=== PATIENT | female | born 1950 | race Caucasian/White ===

== ENCOUNTER 2021-05-16 20:28 | Emergency (ER) | payer MEDICARE, MEDICAID ==
[~2021-05-16] VITALS: Ht 167.6 cm; Wt 93.2 kg
[~2021-05-16 20:28] MED LIST: BAC10T PO; CALC260T6 PO; CLA10T PO; IBUP-1984 PO; SIMV5TAB58 PO; TOP25T PO
[2021-05-16] MEDS ORDERED: LIDOcaine Viscous 15ml cup MM ONE (20:45)
[2021-05-16] MEDS ORDERED: normal saline 1000ML IV soln IVB ONE (20:45)
[2021-05-16] MEDS ORDERED: ketorolac trometh. 30mg/ml inj. IV ONE (20:45)
[2021-05-16] MEDS ORDERED: mag hydrox/Alum hydrox/simeth 30ml oral suspension PO ONE (20:45)
[2021-05-16] MEDS ORDERED: ondansetron/PF 4mg/2ml inj IV ONE (20:45)
[2021-05-16 21:06] LABS: BASOPHILS % (AUTO) 0.3 % (0-1); EOSINOPHILS # (AUTO) 0.1 X10'3 (0-0.9); EOSINOPHILS % (AUTO) 1.1 % (0-6); HEMATOCRIT 40.4 % (35.0-45.0); HEMOGLOBIN 13.1 g/dl (12.0-16.0); LYMPHOCYTES # (AUTO) 2.3 X10'3 (1.1-4.8); LYMPHOCYTES % (AUTO) 20.2 % (21-51); MEAN CORPUSCULAR HEMOGLOBIN 27.4 PG (27.0-31.0); MEAN CORPUSCULAR HGB CONC 32.4 g/dL (33.0-36.5); MEAN CORPUSCULAR VOLUME 84.5 FL (78-98); MEAN PLATELET VOLUME 8.9 FL (7.4-10.4); MONOCYTES # (AUTO) 0.8 X10'3 (0-0.9); MONOCYTES % (AUTO) 6.9 % (2-12); NEUTROPHILS # (AUTO) 8.2 X10'3 (1.8-7.7); NEUTROPHILS % (AUTO) 71.5 % (42-75); PLATELET COUNT 217 X10'3 (140-440); RED BLOOD COUNT 4.78 X10'6 (4.20-5.60); RED CELL DISTRIBUTION WIDTH 15.2 % (11.5-14.5); WHITE BLOOD COUNT 11.4 X10'3 (4.5-11.0)
[2021-05-16 21:14] LABS: ALANINE AMINOTRANSFERASE 26 U/L (12-78); ALBUMIN 3.8 G/DL (3.4-5.0); ALBUMIN/GLOBULIN RATIO 1.4 (1.1-1.5); ALKALINE PHOSPHATASE 122 IU/L (46-116); ANION GAP 11 (8-16); ASPARTATE AMINO TRANSFERASE 15 U/L (10-37); BILIRUBIN,TOTAL 0.4 MG/DL (0.1-1.0); BLOOD UREA NITROGEN 16 MG/DL (7-18); BUN/CREATININE RATIO 18.2 (6.6-38.0); CALCIUM 8.7 MG/DL (8.5-10.1); CHLORIDE 113 MMOL/L (99-107); CREATININE 0.88 MG/DL (0.40-0.90); GLUCOSE 140 MG/DL (70-104); LIPASE 151 U/L (73-393); POTASSIUM 3.9 MMOL/L (3.5-5.1); SODIUM 147 MMOL/L (135-145); TOTAL CARBON DIOXIDE 22.8 MMOL/L (24-32); TOTAL PROTEIN 6.6 G/DL (6.4-8.2); eGFR 63 ML/MIN
[2021-05-16 21:50] LABS: CLARITY,URINE CLEAR (Clear); COLOR,URINE YELLOW (Yellow); GLUCOSE, URINE NEGATIVE (Neg); KETONES,URINE NEGATIVE (Neg); LEUKOCYTE ESTERASE ,URINE SMALL (Neg); NITRITES, URINE NEGATIVE (Neg); OCCULT BLOOD,URINE TRACE-LYSED (Neg); PH,URINE 6.5 (4.8-8.0); PROTEIN,URINE NEGATIVE (Neg); UROBILINOGEN,URINE 0.2 E.U/dL (0.2-1.0)
[2021-05-16 21:54] LABS: UA COLLECTION TYPE VOIDED
[2021-05-16] MEDS ORDERED: ONDA4TAB12 PO (21:57)
[2021-05-16] MEDS ORDERED: CEPH-585 PO (22:01)
[2021-05-16 22:04] LABS: RBC,URINE 0-2 /HPF (0-2)
[2021-05-16 22:05] LABS: BACTERIA,URINE NONE SEEN /HPF (Neg); MUCUS STRANDS NONE SEEN /LPF (Neg); SQUAMOUS EPITHELIAL CELL,UR FEW /LPF (FEW)
[2021-05-16] MEDS ORDERED: iohexol 300mg/ml 100ml inj. ONE (22:33)
[2021-05-17] MEDS ORDERED: acetaminophen 325mg tablet PO STA (01:34)
--- NOTE | 2021-05-17 01:35 | NUR ---
she had an IV in her inner right FA that she said is bad. So RN removed said IV and cannula intact. Her IV fluids of 300 mls were re hooked up and now infusing. Pt and spouse updated about US being paged and HS made aware to contact US.
[2021-05-17 05:46] VITALS: BP 152/55
== END 2021-05-17 05:47 | disposition home or self-care (01) ==
LOC: ER 20:30
DX: R10.13 Epigastric pain (principal); R10.11 Right upper quadrant pain; N39.0 Urinary tract infection, site not specified; R11.0 Nausea; Z86.69 Personal history of other diseases of the nervous system and sense organs; Z98.890 Other specified postprocedural states; Z88.5 Allergy status to narcotic agent; Z88.8 Allergy status to other drugs, medicaments and biological substances; Z79.2 Long term (current) use of antibiotics; Z79.899 Other long term (current) drug therapy
CPT/HCPCS: 36415; 74177; 76705; 80053; 81001; 83690; 84145; 85025; 87088; 96361; 96374; 96375; 99285; J1885; J2405; J7030; Q9967

== ENCOUNTER 2022-01-23 19:47 | Emergency (ER) | payer MEDICARE, MEDICAID ==
[~2022-01-23] VITALS: Ht 162.6 cm; Wt 90.9 kg
[~2022-01-23 19:47] MED LIST changes: +CEPH-585 PO; +ONDA4TAB12 PO
[2022-01-23 20:03] VITALS: BP 149/73
[2022-01-23] MEDS ORDERED: ondansetron/PF 4mg/2ml inj IV ONE (20:45)
[2022-01-23] MEDS ORDERED: normal saline 1000ML IV soln IVB ONE (20:45)
[2022-01-23 21:09] LABS: BASOPHILS % (AUTO) 0.1 % (0-1); EOSINOPHILS # (AUTO) 0.1 X10'3 (0-0.9); EOSINOPHILS % (AUTO) 1.3 % (0-6); HEMATOCRIT 43.9 % (35.0-45.0); HEMOGLOBIN 14.7 g/dl (12.0-16.0); LYMPHOCYTES # (AUTO) 1.5 X10'3 (1.1-4.8); LYMPHOCYTES % (AUTO) 14.3 % (21-51); MEAN CORPUSCULAR HEMOGLOBIN 28.2 PG (27.0-31.0); MEAN CORPUSCULAR HGB CONC 33.6 g/dL (33.0-36.5); MEAN PLATELET VOLUME 8.5 FL (7.4-10.4); MONOCYTES % (AUTO) 9.2 % (2-12); NEUTROPHILS % (AUTO) 75.1 % (42-75); PLATELET COUNT 191 X10'3 (140-440); RED BLOOD COUNT 5.22 X10'6 (4.20-5.60); RED CELL DISTRIBUTION WIDTH 15.3 % (11.5-14.5); WHITE BLOOD COUNT 10.6 X10'3 (4.5-11.0)
[2022-01-23 21:22] LABS: ALANINE AMINOTRANSFERASE 24 U/L (12-78); ALBUMIN 3.3 G/DL (3.4-5.0); ALBUMIN/GLOBULIN RATIO 1.1 (1.1-1.5); ALKALINE PHOSPHATASE 104 IU/L (46-116); ANION GAP 7 (8-16); ASPARTATE AMINO TRANSFERASE 17 U/L (10-37); BILIRUBIN,TOTAL 0.7 MG/DL (0.1-1.0); BLOOD UREA NITROGEN 17 MG/DL (7-18); BUN/CREATININE RATIO 27.4 (6.6-38.0); CALCIUM 8.2 MG/DL (8.5-10.1); CHLORIDE 108 MMOL/L (99-107); CREATININE 0.62 MG/DL (0.40-0.90); GLUCOSE 102 MG/DL (70-104); LIPASE 214 U/L (73-393); POTASSIUM 3.5 MMOL/L (3.5-5.1); SODIUM 139 MMOL/L (135-145); TOTAL CARBON DIOXIDE 23.7 MMOL/L (24-32); TOTAL PROTEIN 6.2 G/DL (6.4-8.2); eGFR > 90 ML/MIN
[2022-01-23] MEDS ORDERED: ONDA4TAB12 PO (21:37)
== END 2022-01-23 22:10 | disposition home or self-care (01) ==
LOC: ER 19:48
DX: R11.2 Nausea with vomiting, unspecified (principal); R19.7 Diarrhea, unspecified; R51.9 Headache, unspecified; R42 Dizziness and giddiness; R10.9 Unspecified abdominal pain; G89.29 Other chronic pain; Z90.49 Acquired absence of other specified parts of digestive tract; Z98.890 Other specified postprocedural states; Z88.5 Allergy status to narcotic agent; Z88.8 Allergy status to other drugs, medicaments and biological substances; Z79.2 Long term (current) use of antibiotics; Z79.899 Other long term (current) drug therapy
CPT/HCPCS: 36415; 80053; 83690; 85025; 96361; 96374; 99283; J2405; J7030

== ENCOUNTER 2022-05-27 14:35 | Emergency (ER) | payer MEDICARE, MEDICAID ==
[~2022-05-27] VITALS: Ht 160 cm; Wt 90.0 kg
[~2022-05-27 14:35] MED LIST changes: -CEPH-585 PO
[2022-05-27 14:52] VITALS: BP 149/81
== END 2022-05-27 16:57 | disposition home or self-care (01) ==
LOC: ER 14:35
DX: S43.401A Unspecified sprain of right shoulder joint, initial encounter (principal); S00.83XA Contusion of other part of head, initial encounter; S00.31XA Abrasion of nose, initial encounter; M25.511 Pain in right shoulder; R51.9 Headache, unspecified; G89.29 Other chronic pain; Z86.69 Personal history of other diseases of the nervous system and sense organs; Z90.89 Acquired absence of other organs; Z98.890 Other specified postprocedural states; Z88.5 Allergy status to narcotic agent; Z88.8 Allergy status to other drugs, medicaments and biological substances; Z79.899 Other long term (current) drug therapy; W01.0XXA Fall on same level from slipping, tripping and stumbling without subsequent striking against object, initial encounter; Y93.89 Activity, other specified; Y92.89 Other specified places as the place of occurrence of the external cause; Y99.8 Other external cause status
CPT/HCPCS: 73030; 73110; 73130; 99284

== ENCOUNTER 2023-02-06 12:25 | Emergency (ER) | payer MEDICARE, MEDICAID ==
[~2023-02-06] VITALS: Ht 160 cm; Wt 86.4 kg
[2023-02-06 12:29] VITALS: BP 138/68
[2023-02-06] MEDS ORDERED: GABA300C PO (14:11)
[2023-02-06] MEDS ORDERED: DICL100G30 TOP (14:53)
== END 2023-02-06 15:09 | disposition home or self-care (01) ==
LOC: ER 12:25
DX: M17.12 Unilateral primary osteoarthritis, left knee (principal); Z88.1 Allergy status to other antibiotic agents; Z88.5 Allergy status to narcotic agent; Z98.890 Other specified postprocedural states
CPT/HCPCS: 73564; 93971; 99284